=== PATIENT | female | born 1980 | race Caucasian/White ===

== ENCOUNTER 2017-06-21 14:21 | Emergency (ER) | payer MEDICAID ==
[~2017-06-21] VITALS: Ht 175.3 cm; Wt 124.7 kg
[~2017-06-21 14:21] MED LIST: APAP/HYDROCODON1 TA9 PO; ESCITALOPRAM 2020 MG PO; HYDROCODONE/ACE1 TA5 PO; LEVAQUIN500 MG PO; LORTAB 10/3251 TAB PO; NOMEDS *; NORCO1 TAB PO; PHENERGAN25 M3 PO; TOPAMAX100 MG PO
--- NOTE | 2017-06-21 14:47 | Urgent Treatment Center Report ---
History of Present Issue Date/Time Seen by Provider 06/21/17 3903 Visit Reason Pt arrived:Walked Presenting Problem:SORE THROAT, ACHY, NAUSEATED AND STUFFY NOSE FOR 2 DAYS Location if Accident: Onset of symptoms date/time:/ or onset unknown for:MEDICAL HX UNKNOWN Have you (or family members/close friends) recently traveled outside the [place]? N If Yes, where/when: Have you had exposure to infectious disease within the past month? TB? Other? Specify: c/o sore throat and nausea. "I just know I have strep". drank after daughter prior to her testing positive for strep less than one week ago. Sore throat started as scratchy 2 days ago but has progressively gotten worse. PND, nasal congestion, "I always have a headache. That is my normal and hasn't changed.", nausea today. Feeling feverish but no documented fevers. Tylenol at 7am. Hasn't taken or tried anything since. Source patient Exam Limitations no limitations ALLERGIES Coded Allergies: No Known Allergies (10/20/15) Home Medications Reported Medications Topiramate (Topamax) 100 MG PO BID Escitalopram Oxalate (Escitalopram 20MG) 20 MG PO DAILY History Medical History General CAD? No Angina: No [place]: No Hypertension? No Hyperlipidemia? No CHF? No DVT? No PE? No COPD? No Asthma? No Anemia? No GERD? No Gastric ulcers? No GI Bleed? No Hernia? No Thyroid Problems? No Hypothyroidism? No CVA? No Seizures? No Diabetes? No Renal Insuffiency? No UTI? No Stones? Yes BPH? No GB Disease: No Nephritic Syndrome? No Asplenia? No Hepatitis? No Sickle Cell Disease? No Arthritis? No Migraines? Yes Cataracts? No Glaucoma? No MRSA? No HIV? No TB? No Anxiety? No Depression? Yes Cancer? No More? Yes Additional hx: FIBROMYALGIA Immunization HX DT/Tetanus Unknown Flu Refused Pneumonia Refuses Surgical Hx Previous Surgery?Y LAPROSCOPE PCOS REMOVAL NECK MYOMA REMOVED LEFT HAND CARPAL TUNNEL RENAL STENTS Family History Family HX Diabetes Yes CAD No Hypertension Yes Hyperlipidemia No Cancer Yes TB No Social History Smoking Hx Smoker: Current Every Day Smoker Tobacco: Yes Type Cigarettes Packs/day 1 1/2 - 2 Packs Alcohol Alcohol: No Review of Systems All Other Systems Reviewed and Negative Constitutional see HPI Eyes denies drainage ENT see HPI, ear pain ("not pain, just fullness"), nose discharge (clear). denies: ear discharge, throat swelling. Respiratory denies cough Gastrointestinal see HPI, denies abdominal pain, denies diarrhea, denies vomiting Musculoskeletal other (mild aches) Skin denies rash Psychiatric/Neurological see HPI, denies other (dizziness) Physical Exam Vital Signs Vital Signs Date Time Temp Pulse Resp B/P Pulse O2 O2 Flow FiO2 Ox Delivery Rate 06/21 1431 98.1 119 16 127/77 97 General Appearance no apparent distress, obese Eye Exam - bilateral eye normal exam Ear, Nose, Throat normal ENT x/ pharyngeal erythema & cobblestoning Neck non-tender, supple Respiratory Status No: respiratory distress, productive cough, non productive cough. Lung Sounds anterior: lungs clear. posterior: lungs clear. bilateral: lungs clear. Cardiovascular regular rate/rhythm, no peripheral edema, no murmur Gastrointestinal normal bowel sounds, non tender, soft Neurologic alert, oriented x 3 Skin normal color, warm/dry Lymphatic no adenopathy Medical Decision Making LABS/Meds/Orders Pt receiving controlled substance in ED? No Results/Orders Laboratory Tests 06/21/17 1430: Group A Strep Screen NOT DETECTED Current Medication Orders Sig/Samantha Start time Last Medication Dose Route Stop Time Status Admin Ibuprofen 800 MG ONCE ONE 06/21 1500 DC 06/21 PO 06/21 1501 1500 Ondansetron HCl 4 MG ONCE ONE 06/21 1500 DC 06/21 IM 06/21 1501 1500 Ibuprofen 0 .STK-MED ONE 06/21 1459 DC PO Ondansetron HCl 0 .STK-MED ONE 06/21 1459 DC .ROUTE Orders Procedure Date/time Status [facility] STREP SCREEN 06/21 1431 Complete Progress [facility] Progress Notes Date 06/21/17 Time 1522 Comment pr reports feeling "somewhat better now that the nausea has subsided". requesting promethazine for home. Hx of migraines as well and fears these symptoms will trigger a migraine. Aware of drowsiness side effects. rvwd POC Departure Departure Time of Disposition 1530 Disposition [place] Home or Self Care(routine) Clinical Impression Primary Impression: Acute viral pharyngitis Secondary Impressions: Nausea Condition STABLE Referrals NO REFERRAL Keep FU with new PCP, Zaria Laird for next week but seek treatment IMMEDIATELY for new or worsening symptoms. 911 for difficulty breathing or swallowing. Patient Instructions DI for Nausea -- Adult, DI for Viral Pharyngitis Additional Instructions * No sign of bacterial infection. Likely viral. Virus can take 7-14 days to run their course * Monitor Temp. Tylenol every 4 hours as needed and/or ibuprofen every 6 hours as needed (as long as your primary care doctor has told you that it is ok to take both) for fever/aches/pain. ER if fever no less than 101 despite tylenol and ibuprofen * Encourage fluids, water, gatorade, powerade, pedialyte if /toddler/child * warm salt water gargles * warm fluids * sore throat lozenges * sleep elevated * humidifier/vaporizer * bland foods * * Your throat swab was sent for culture. Those results are typically sent to your primary care. Be sure to follow up in 2-3 days if no improvement so they can review those results and treat if necessary. If you don't have primary care, I recommend you get one but in the mean time, you will have to return to a walk in clinic. * phenergan does cause drowsiness as you reported you were aware so no driving or caring for children after taking it. Discharge Counseling Counseled pt/family regarding diagnosis, test results, medications/RX, home care, follow up needs Prescriptions Current Visit Scripts PROMETHAZINE HCL (Promethazine 25mg Tab) 25 MG PO Q8HP PRN nausea or vomiting #6 TAB will cause drowsiness at 7881
[2017-06-21] MEDS ORDERED: PROMETHAZINE HC25 M1 PO (15:30)
[2017-06-21 15:32] VITALS: BP 127/77
== END 2017-06-21 15:33 | disposition home or self-care (01) ==
LOC: UTC 14:21
DX: J02.9 Acute pharyngitis, unspecified (principal); R11.0 Nausea; M79.7 Fibromyalgia; Z72.0 Tobacco use
CPT/HCPCS: J2405

== ENCOUNTER 2017-06-26 08:38 | Emergency (ER) | payer MEDICAID ==
[~2017-06-26] VITALS: Ht 175.3 cm; Wt 124.7 kg
[~2017-06-26 08:38] MED LIST changes: +PROMETHAZINE HC25 M1 PO
[2017-06-26] MEDS ORDERED: AMOXICILLIN875 MG PO (09:15)
--- NOTE | 2017-06-26 09:15 | Urgent Treatment Center Report ---
History of Present Issue Date/Time Seen by Provider 06/26/17 0908 Visit Reason Pt arrived:Walked Presenting Problem:PT SEEN IN [facility] [[email or web address] SATURDAY AND RETURNS TODAY AND FEELS WORSE, SORE THROAT. Location if Accident: Onset of symptoms date/time:/ or onset unknown for:MEDICAL HX UNKNOWN Have you (or family members/close friends) recently traveled outside the [place]? N If Yes, where/when: Have you had exposure to infectious disease within the past month? TB? Other? Specify: c/o worsening sore throat. Was seen Saturday, 06/22, for sore throat but also other cold symptoms. Had been exposed to strep. Rapid strep negative. Strep culture negative. Thought she was getting better "then bottom dropped out yesterday". Sore throat markedly worse, feeling feverish, chills and woke this morning w/ lymph nodes swollen in neck. Daughter recently treated for strep. Warm fluids make throat worse and cause nausea. fever reducers have helped. Source patient Exam Limitations no limitations ALLERGIES Coded Allergies: No Known Allergies (10/20/15) Home Medications Active Scripts PROMETHAZINE HCL (Promethazine 25mg Tab) 25 MG PO Q8HP PRN nausea or vomiting #6 TAB Prov: 06/21/17 Reported Medications Topiramate (Topamax) 100 MG PO BID Escitalopram Oxalate (Escitalopram 20MG) 20 MG PO DAILY History Medical History General CAD? No Angina: No [place]: No Hypertension? No Hyperlipidemia? No CHF? No DVT? No PE? No COPD? No Asthma? No Anemia? No GERD? No Gastric ulcers? No GI Bleed? No Hernia? No Thyroid Problems? No Hypothyroidism? No CVA? No Seizures? No Diabetes? No Renal Insuffiency? No UTI? No Stones? Yes BPH? No GB Disease: No Nephritic Syndrome? No Asplenia? No Hepatitis? No Sickle Cell Disease? No Arthritis? No Migraines? Yes Cataracts? No Glaucoma? No MRSA? No HIV? No TB? No Anxiety? No Depression? Yes Cancer? No More? Yes Additional hx: FIBROMYALGIA Immunization HX DT/Tetanus Unknown Flu Refused Pneumonia Refuses Surgical Hx Previous Surgery?Y LAPROSCOPE PCOS REMOVAL NECK MYOMA REMOVED LEFT HAND CARPAL TUNNEL RENAL STENTS Family History Family HX Diabetes Yes CAD No Hypertension Yes Hyperlipidemia No Cancer Yes TB No Social History Smoking Hx Smoker: Current Every Day Smoker Tobacco: Yes Type Cigarettes Packs/day 1 1/2 - 2 Packs Alcohol Alcohol: No Review of Systems All Other Systems Reviewed and Negative Constitutional see HPI, malaise Eyes denies drainage ENT see HPI, nose discharge, nose congestion. denies: ear pain, other (no difficulty swallowing). Respiratory cough, denies shortness of breath, denies stridor, denies wheezing Cardiovascular denies chest pain, denies palpitations Gastrointestinal denies abdominal pain, denies diarrhea, nausea, denies vomiting Musculoskeletal other (achy all over) Skin denies rash Psychiatric/Neurological headache (mild, intermittent) Physical Exam Vital Signs Vital Signs Date Time Temp Pulse Resp B/P Pulse O2 O2 Flow FiO2 Ox Delivery Rate 06/26 0907 98.9 113 20 123/78 96 General Appearance normal appearance, no apparent distress Eye Exam - bilateral eye normal exam Ear, Nose, Throat normal ENT except erythematous pharynx w/ tonsil 2+, no exudate Neck supple, full range of motion, lymphadenopathy (R), lymphadenopathy (L), tender lateral Respiratory Status No: respiratory distress, productive cough, non productive cough. Lung Sounds anterior: lungs clear. posterior: lungs clear. bilateral: lungs clear. Cardiovascular no peripheral edema, no murmur, tachycardia Neurologic alert, oriented x 3 Skin normal color, warm/dry Lymphatic tonsillar lymphadenopathy daryl, tender, soft, Medical Decision Making LABS/Meds/Orders Pt receiving controlled substance in ED? No Results/Orders Laboratory Tests 06/26/17 0850: Group A Strep Screen DETECTED Orders Procedure Date/time Status [facility] [[email or web address] STREP SCREEN 06/26 0849 Complete Departure Departure Time of Disposition 09 Disposition [place] Home or Self Care(routine) Clinical Impression Primary Impression: Strep throat Condition STABLE Referrals SADIQ ONEILL (Family) IMMEDIATELY for new or worsening symptoms OR no noticeable improvement over the next 24-48 hours. 911 for difficulty breathing or swallowing Patient Instructions DI for Strep Throat Additional Instructions * Start antibiotic KHADIJAH and be sure to take as ordered for the FULL length of time although you should start to feel better in 24-48 hours. * change toothbrush and toothpaste 24-48 hours after starting antibiotic * Monitor Temp. Tylenol every 4 hours as needed no more then 5 times in 24 hours and/or ibuprofen every 6 hours as needed (as long as your primary care doctor has told you that it is ok to take both) for fever/aches/pain. ER if fever no less than 101 despite tylenol and Ibuprofen * Encourage fluids, water, gatorade, powerade, pedialyte if infant/toddler/child * cold fluids, popsicles, ice cream feel good * you are contagious until you have taken the antibiotic for 24 hours. No school tomorrow. * Avoid kissing anyone, including parents. No eating or drinking after anyone. You are contagious. Discharge Counseling Counseled pt/family regarding diagnosis, test results, medications/RX, home care, follow up needs Prescriptions Current Visit Scripts AMOXICILLIN (Amoxicillin 875MG Tab) 875 MG PO BID #20 TAB at 0917
--- NOTE | 2017-06-26 09:15 | Urgent Treatment Center Report ---
History of Present Issue Date/Time Seen by Provider 06/26/17 0908 Visit Reason Pt arrived:Walked Presenting Problem:PT SEEN IN [facility] SATURDAY AND RETURNS TODAY AND FEELS WORSE, SORE THROAT. Location if Accident: Onset of symptoms date/time:/ or onset unknown for:MEDICAL HX UNKNOWN Have you (or family members/close friends) recently traveled outside the [place]? N If Yes, where/when: Have you had exposure to infectious disease within the past month? TB? Other? Specify: c/o worsening sore throat. Was seen Saturday, 06/22, for sore throat but also other cold symptoms. Had been exposed to strep. Rapid strep negative. Strep culture negative. Thought she was getting better "then bottom dropped out yesterday". Sore throat markedly worse, feeling feverish, chills and woke this morning w/ lymph nodes swollen in neck. Daughter recently treated for strep. Warm fluids make throat worse and cause nausea. fever reducers have helped. Source patient Exam Limitations no limitations ALLERGIES Coded Allergies: No Known Allergies (10/20/15) Home Medications Active Scripts PROMETHAZINE HCL (Promethazine 25mg Tab) 25 MG PO Q8HP PRN nausea or vomiting #6 TAB Prov: 06/21/17 Reported Medications Topiramate (Topamax) 100 MG PO BID Escitalopram Oxalate (Escitalopram 20MG) 20 MG PO DAILY History Medical History General CAD? No Angina: No [place]: No Hypertension? No Hyperlipidemia? No CHF? No DVT? No PE? No COPD? No Asthma? No Anemia? No GERD? No Gastric ulcers? No GI Bleed? No Hernia? No Thyroid Problems? No Hypothyroidism? No CVA? No Seizures? No Diabetes? No Renal Insuffiency? No UTI? No Stones? Yes BPH? No GB Disease: No Nephritic Syndrome? No Asplenia? No Hepatitis? No Sickle Cell Disease? No Arthritis? No Migraines? Yes Cataracts? No Glaucoma? No MRSA? No HIV? No TB? No Anxiety? No Depression? Yes Cancer? No More? Yes Additional hx: FIBROMYALGIA Immunization HX DT/Tetanus Unknown Flu Refused Pneumonia Refuses Surgical Hx Previous Surgery?Y LAPROSCOPE PCOS REMOVAL NECK MYOMA REMOVED LEFT HAND CARPAL TUNNEL RENAL STENTS Family History Family HX Diabetes Yes CAD No Hypertension Yes Hyperlipidemia No Cancer Yes TB No Social History Smoking Hx Smoker: Current Every Day Smoker Tobacco: Yes Type Cigarettes Packs/day 1 1/2 - 2 Packs Alcohol Alcohol: No Review of Systems All Other Systems Reviewed and Negative Constitutional see HPI, malaise Eyes denies drainage ENT see HPI, nose discharge, nose congestion. denies: ear pain, other (no difficulty swallowing). Respiratory cough, denies shortness of breath, denies stridor, denies wheezing Cardiovascular denies chest pain, denies palpitations Gastrointestinal denies abdominal pain, denies diarrhea, nausea, denies vomiting Musculoskeletal other (achy all over) Skin denies rash Psychiatric/Neurological headache (mild, intermittent) Physical Exam Vital Signs Vital Signs Date Time Temp Pulse Resp B/P Pulse O2 O2 Flow FiO2 Ox Delivery Rate 06/26 0907 98.9 113 20 123/78 96 General Appearance normal appearance, no apparent distress Eye Exam - bilateral eye normal exam Ear, Nose, Throat normal ENT except erythematous pharynx w/ tonsil 2+, no exudate Neck supple, full range of motion, lymphadenopathy (R), lymphadenopathy (L), tender lateral Respiratory Status No: respiratory distress, productive cough, non productive cough. Lung Sounds anterior: lungs clear. posterior: lungs clear. bilateral: lungs clear. Cardiovascular no peripheral edema, no murmur, tachycardia Neurologic alert, oriented x 3 Skin normal color, warm/dry Lymphatic tonsillar lymphadenopathy daryl, tender, soft, Medical Decision Making LABS/Meds/Orders Pt receiving controlled substance in ED? No Results/Orders Laboratory Tests 06/26/17 0850: Group A Strep Screen DETECTED Orders Procedure Date/time Status [facility] STREP SCREEN 06/26 0849 Complete Departure Departure Time of Disposition 09 Disposition [place] Home or Self Care(routine) Clinical Impression Primary Impression: Strep throat Condition STABLE Referrals SADIQ ONEILL (Family) IMMEDIATELY for new or worsening symptoms OR no noticeable improvement over the next 24-48 hours. 911 for difficulty breathing or swallowing Patient Instructions DI for Strep Throat Additional Instructions * Start antibiotic KHADIJAH and be sure to take as ordered for the FULL length of time although you should start to feel better in 24-48 hours. * change toothbrush and toothpaste 24-48 hours after starting antibiotic * Monitor Temp. Tylenol every 4 hours as needed no more then 5 times in 24 hours and/or ibuprofen every 6 hours as needed (as long as your primary care doctor has told you that it is ok to take both) for fever/aches/pain. ER if fever no less than 101 despite tylenol and Ibuprofen * Encourage fluids, water, gatorade, powerade, pedialyte if infant/toddler/child * cold fluids, popsicles, ice cream feel good * you are contagious until you have taken the antibiotic for 24 hours. No school tomorrow. * Avoid kissing anyone, including parents. No eating or drinking after anyone. You are contagious. Discharge Counseling Counseled pt/family regarding diagnosis, test results, medications/RX, home care, follow up needs Prescriptions Current Visit Scripts AMOXICILLIN (Amoxicillin 875MG Tab) 875 MG PO BID #20 TAB at 0917
[2017-06-26 09:24] VITALS: BP 123/78
== END 2017-06-26 09:25 | disposition home or self-care (01) ==
LOC: UTC 08:38
DX: J02.0 Streptococcal pharyngitis (principal); F17.210 Nicotine dependence, cigarettes, uncomplicated